=== PATIENT | male | born 1975 | race Two or more races ===

== ENCOUNTER 2018-08-08 18:40 | Emergency (ER) | payer SELFPAY ==
[2018-08-08 18:53] VITALS: BP 132/66
[2018-08-08] MEDS ORDERED: Ciproflox/Dexameth OTIC.SUSP* 7.5 ML BTL RIGHT EAR ONE (19:25)
--- NOTE | 2018-08-08 19:25 | ED ---
Throat Pain/Nasal Congestion - HPI Summary HPI Summary: 42-year-old male presents with decreasing hearing in his right ear. He states that last week he got some water in his ears. He states it feels like this feels like water is still present He denies any pain. Denies any sinus congestion. He denies any ear popping. He's never had this before. No headache. Has not tried anything for his symptoms. States that it seems to changes with positional changes. - History of Current Complaint Chief Complaint: EDEarPain Time Seen by Provider: 08/08/18 19:15 - Allergies/Home Medications Allergies/Adverse Reactions: Allergies Allergy/AdvReac Type Severity Reaction Status Date / Time No Known Allergies Allergy Verified 08/08/18 18:45 Home Medications: Home Medications NK [No Home Medications Reported] 08/08/18 [History Confirmed 08/08/18] PMH/Surg Hx/FS Hx/Imm Hx Endocrine/Hematology History: Reports: Hx Diabetes Denies: Hx Thyroid Disease Cardiovascular History: Denies: Hx Hypertension Respiratory History: Denies: Hx Asthma, Hx Chronic Obstructive Pulmonary Disease (COPD) GI History: Denies: Hx Ulcer - Surgical History Surgery Procedure, Year, and Place: left ankle surgery r/t fracture. [facility] 2008. appe 2003 Infectious Disease History: No Infectious Disease History: Denies: Hx Clostridium Difficile, Hx Hepatitis, Hx Human Immunodeficiency Virus (HIV), Hx Shingles, Hx Tuberculosis, Hx Known/Suspected VRE, Hx Known/ Suspected VRSA, History Other Infectious Disease, Traveled Outside the [place] in Last 30 Days - Family History Known Family History: Positive: Hypertension, Diabetes - Social History Alcohol Use: None Substance Use Type: Reports: None Smoking Status (MU): Former Smoker Amount Used/How Often: rare Review of Systems Negative: Fever Positive: Other - unable to hear out of right ear Negative: Chest Pain Negative: Shortness Of Breath All Other Systems Reviewed And Are Negative: Yes Physical Exam Triage Information Reviewed: Yes Vital Signs On Initial Exam: Initial Vitals Temp Pulse Resp BP Pulse Ox 97.9 F 86 16 132/66 96 08/08/18 18:46 08/08/18 18:46 08/08/18 18:46 08/08/18 18:46 08/08/18 18:46 Vital Signs Reviewed: Yes Appearance: Positive: Well-Appearing Skin: Positive: Warm, Dry Head/Face: Positive: Normal Head/Face Inspection Eyes: Positive: Normal, EOMI, ASHLEY, Conjunctiva Clear ENT: Positive: Pharynx normal, TMs normal, Other - right ear canal erythematous , wax present which removed Respiratory/Lung Sounds: Positive: Clear to Auscultation, Breath Sounds Present Cardiovascular: Positive: Normal, RRR Musculoskeletal: Positive: Normal Neurological: Positive: Normal Psychiatric: Positive: Normal Diagnostics - Vital Signs Vital Signs Temp Pulse Resp BP Pulse Ox 08/08/18 18:46 97.9 F 86 16 132/66 96 - Laboratory Lab Statement: Any lab studies that have been ordered have been reviewed, and results considered in the medical decision making process. EENT Course/Dx - Course Course Of Treatment: 42-year-old male presents with decreasing hearing in his right ear. He states that last week he got some water in his ears. He states it feels like this feels like water is still present He denies any pain. Denies any sinus congestion. He denies any ear popping. He's never had this before. No headache. Has not tried anything for his symptoms. States that it seems to changes with positional changes. On exam some wax present in right ear that I removed. The TMs are normal. Ear canal erythematous. Explain likely has otitis externa from the water that was present in ear. No liquid seen in canal. We'll place on Ciprodex. Patient understands and agrees the plan. - Differential Diagnoses Differential Diagnoses: Otitis Externa, Otitis Media, Sinusitis - Diagnoses Provider Diagnoses: Otitis externa Discharge - Sign-Out/Discharge Documenting (check all that apply): Patient Departure - Discharge Plan Condition: Good Disposition: HOME Patient Education Materials: Otitis Externa (ED) Referrals: No Primary Care Phys,NOPCP [Primary Care Provider] - Additional Instructions: Use 4 drops twice a day for 7 days Take Tylenol or ibuprofen for pain every 6 hours as needed Follow up with primary in a week to make sure resolving Return to ED if develop any new or worsening symptoms - Billing Disposition and Condition Condition: GOOD Disposition: Home
== END 2018-08-08 19:34 | disposition home or self-care (01) ==
LOC: ED 18:40
DX: H60.91 Unspecified otitis externa, right ear (principal); Z87.891 Personal history of nicotine dependence
CPT/HCPCS: 99281; A9270-GY